=== PATIENT | female | born 1970 | race Caucasian/White ===

== ENCOUNTER 2019-06-09 12:40 | Inpatient (IN) ==
[2019-06-09 14:09] LABS: Bilirubin,Urine Negative (Negative); Blood,Urine Trace (Negative); Clarity,Urine Cloudy (Clear); Color,Urine Yellow (Yellow); Glucose,Urine (UA) Normal (Normal); Ketones,Urine Negative (Negative); Leukocyte Esterase,Urine Moderate (Negative); Nitrite,Urine Negative (Negative); PH,Urine 5.5 pH Units (5.0-8.0); Protein,Urine Trace mg/dL (Neg-Trace); Specific Gravity,Urine 1.023 (1.010-1.025); Urobilinogen,Urine Normal (Normal)
[2019-06-09 14:15] LABS: Basophils % 0.4 %; Eosinophils # 0.2 K/mcL (0.0-0.6); Eosinophils % 2.7 %; Hematocrit 42.4 % (35.3-44.9); Hemoglobin 15.1 g/dL (11.5-15.4); Immature Granulocytes % 0.1 % (0-4); Lymphocytes # 3.4 K/mcL (0.6-4.6); Mean Corpuscular HGB Conc 35.6 g/dL (31.6-35.5); Mean Corpuscular Hemoglobin 34.2 pg (28.0-33.3); Mean Corpuscular Volume 96.1 fL (83.0-100.0); Mean Platelet Volume 10.5 fL (9.4-12.4); Monocytes # 0.8 K/mcL (0.0-1.3); Monocytes % 11.7 %; Neutrophils # 2.6 K/mcL (1.6-8.9); Platelet Count 234 K/mcL (140-400); Red Blood Count 4.41 M/mcL (3.82-4.97); Red Cell Distribution Width 11.9 % (11.5-14.5); Segmented Neutrophils % 37.1 %; White Blood Count 7.1 K/mcL (4.3-11.1)
[2019-06-09 14:16] LABS: Amphetamine Screen,Urine Negative ng/mL (Cutoff=1000); Barbiturate Screen,Urine Negative ng/mL (Cutoff=200); Benzodiazepines Screen,Urine Negative ng/mL (Cutoff=200); Cannabinoid Screen,Urine Positive ng/mL (Cutoff = 50); Cocaine Screen,Urine Negative ng/mL (Cutoff= 300); Opiate Screen,Urine Negative ng/mL (Cutoff=300); Phencyclidine Screen,Urine Negative ng/mL (Cutoff=25)
[2019-06-09 14:16] LABS: Bacteria,Urine None Seen per hpf (None-Few); Hyaline Casts,Urine None Seen per lpf (None-Few); Squamous Epithelial Cell,Urine Many per lpf (None-Few)
[2019-06-09 14:27] LABS: Alanine Aminotransferase 10 Units/L (7-52); Albumin 4.5 g/dL (3.5-5.7); Albumin/Globulin Ratio 1.6 (1.1-2.2); Alkaline Phosphatase 77 Units/L (34-104); Aspartate Amino Transferase 15 Units/L (13-39); BUN/Creatinine Ratio 15 (6-26); Bilirubin,Indirect 0.4 mg/dL (0.0-1.0); Bilirubin,Total 0.4 mg/dL (0.3-1.0); Blood Urea Nitrogen 13 mg/dL (6-20); Calcium 9.5 mg/dL (8.6-10.3); Carbon Dioxide 24 mEq/L (23-29); Chloride 108 mEq/L (98-107); Glucose 96 mg/dL (70-105); Osmolality,Calculated 288 (280-300); Sodium 139 mEq/L (136-145); Total Protein 7.4 g/dL (6.4-8.9); eGFR For African Americans > 60 (> 60); eGFR For Non-African Americans > 60 (> 60)
[2019-06-09 14:28] LABS: Acetaminophen < 10 mcg/mL (10-20); Ethanol < 10 mg/dL (Less than 10); Globulin 2.9 g/dL (2.4-3.5); Salicylate < 2.5 mg/dL (15.0-30.0)
[2019-06-09] MEDS ORDERED: Haloperidol Lactate 5 MG/ML VIAL IM PRN (16:28)
[2019-06-09] MEDS ORDERED: MOM Conc 10 ML UD.LIQ PO PRN (16:28)
[2019-06-09] MEDS ORDERED: *HR* LORazepam 1 MG TABLET PO PRN (16:28)
[2019-06-09] MEDS ORDERED: *HR* LORazepam 2 MG/ML VIAL IM PRN (16:28)
[2019-06-09] MEDS ORDERED: traZODone 50 MG TABLET PO PRN (16:28)
[2019-06-09] MEDS ORDERED: Mag Hydrox/Al Hydrox/Simeth 30 ML UDC PO PRN (16:28)
[2019-06-09] MEDS ORDERED: hydrOXYzine pamoate 25 MG CAPSULE PO PRN (16:28)
[2019-06-09] MEDS ORDERED: Acetaminophen 325 MG TABLET PO PRN (16:28)
[2019-06-09] MEDS ORDERED: Ibuprofen 600 MG TABLET PO PRN (17:39)
[2019-06-09] MEDS ORDERED: Ondansetron ODT 4 MG TAB.RAPDIS SL PRN (17:39)
[2019-06-09] MEDS: cephALEXin 500 MG CAPSULE PO SCH ×2 (17:50→22:22)
[2019-06-09] MEDS ORDERED: clonazePAM 1 MG TABLET PO SCH (21:00)
[2019-06-09] MEDS: FluocinoNIDE 0.05% CRM 15 GM TUBE TP SCH (21:42)
[2019-06-10] MEDS: Loratadine 10 MG TABLET PO SCH (09:22)
[2019-06-10] MEDS: Venlafaxine XR (24 HR) 75 MG CAP.ER.24H PO SCH (09:22)
[2019-06-10] MEDS: cephALEXin 500 MG CAPSULE PO SCH ×3 (09:22→21:50)
[2019-06-10] MEDS: Cyanocobalamin (B-12) 1,000 MCG TABLET PO SCH (09:23)
[2019-06-10] MEDS: FluocinoNIDE 0.05% CRM 15 GM TUBE TP SCH ×2 (09:26→21:48)
[2019-06-10] MEDS ORDERED: clonazePAM 0.5 MG TABLET PO SCH (21:00)
[2019-06-10] MEDS: OXcarbazepine 150 MG TABLET PO SCH (21:50)
[2019-06-11] MEDS: cephALEXin 500 MG CAPSULE PO SCH (08:32)
[2019-06-11] MEDS: FluocinoNIDE 0.05% CRM 15 GM TUBE TP SCH (08:33)
[2019-06-11] MEDS: Loratadine 10 MG TABLET PO SCH (08:33)
[2019-06-11] MEDS: Venlafaxine XR (24 HR) 75 MG CAP.ER.24H PO SCH (08:33)
[2019-06-11] MEDS: Cyanocobalamin (B-12) 1,000 MCG TABLET PO SCH (08:33)
[2019-06-11] MEDS: OXcarbazepine 150 MG TABLET PO SCH (08:33)
[2019-06-11 10:05] VITALS: BP 109/65
[2019-06-11] MEDS ORDERED: FLU Vac QV 19-20 (6Month+)/PF 0.5 ML SYRINGE IM ONE (12:13)
== END 2019-06-11 13:35 | disposition home or self-care (01) | DRG 753 ==
LOC: EMEROOARM 12:40 → 1ANU 15:59 → SUATTDRO 15:59 → 1ANU 16:18
PROVIDERS: ADMIT Psychiatry & Neurology Psychiatry; ATTEND Psychiatry & Neurology Psychiatry

== ENCOUNTER 2020-06-26 14:54 | Inpatient (IN) ==
[2020-06-26] MEDS ORDERED: *HR* LORazepam 1 MG TABLET PO ONE (15:03)
[2020-06-26 15:30] LABS: Bacteria,Urine Few per hpf (None-Few); Bilirubin,Urine Negative (Negative); Blood,Urine Trace-lysed (Negative); Clarity,Urine Clear (Clear); Color,Urine Yellow (Yellow); Glucose,Urine (UA) Normal (Normal); Hyaline Casts,Urine Few per lpf (None Seen); Ketones,Urine Negative (Negative); Leukocyte Esterase,Urine Negative (Negative); Mucus,Urine Moderate per lpf (None-Few); Nitrite,Urine Negative (Negative); Protein,Urine Trace mg/dL (Neg-Trace); Squamous Epithelial Cell,Urine Moderate per hpf (None-Few); Urobilinogen,Urine Normal (Normal); WBC,Urine 0-3 per hpf (0-3)
[2020-06-26 15:40] LABS: Amphetamine Screen,Urine Negative ng/mL (Cutoff=1000); Barbiturate Screen,Urine Negative ng/mL (Cutoff=200); Benzodiazepines Screen,Urine Negative ng/mL (Cutoff=200); Cannabinoid Screen,Urine Negative ng/mL (Cutoff = 50); Cocaine Screen,Urine Negative ng/mL (Cutoff= 300); Opiate Screen,Urine Negative ng/mL (Cutoff=300); Phencyclidine Screen,Urine Negative ng/mL (Cutoff=25)
[2020-06-26 15:42] LABS: Basophils # 0.1 K/mcL (0.0-0.2); Basophils % 0.6 %; Eosinophils # 0.1 K/mcL (0.0-0.6); Eosinophils % 0.9 %; Hematocrit 38.2 % (35.3-44.9); Hemoglobin 12.8 g/dL (11.5-15.4); Immature Granulocytes % 0.4 % (0-4); Lymphocytes # 2.5 K/mcL (0.6-4.6); Lymphocytes % 30.8 %; Mean Corpuscular HGB Conc 33.5 g/dL (31.6-35.5); Mean Corpuscular Hemoglobin 33.9 pg (28.0-33.3); Mean Corpuscular Volume 101.1 fL (83.0-100.0); Mean Platelet Volume 10.2 fL (9.4-12.4); Monocytes # 0.8 K/mcL (0.0-1.3); Monocytes % 9.3 %; Neutrophils # 4.7 K/mcL (1.6-8.9); Platelet Count 240 K/mcL (140-400); Red Blood Count 3.78 M/mcL (3.82-4.97); White Blood Count 8.2 K/mcL (4.3-11.1)
[2020-06-26 15:47] LABS: Estimated Average Glucose 111 mg/dl
[2020-06-26 15:56] LABS: Acetaminophen < 10 mcg/mL (10-20); BUN/Creatinine Ratio 13 (6-26); Blood Urea Nitrogen 12 mg/dL (6-20); Calcium 9.3 mg/dL (8.6-10.3); Carbon Dioxide 25 mEq/L (23-29); Chloride 109 mEq/L (98-107); Chol/HDL Ratio 4.1 (0-4.9); Cholesterol 173 mg/dL (< 200); Ethanol < 10 mg/dL (Less than 10); Glucose 91 mg/dL (70-105); HDL Cholesterol 42 mg/dL (40-59); LDL Cholesterol,Calculated 117 mg/dL (< 100); Osmolality,Calculated 295 (280-300); Potassium 3.8 mEq/L (3.5-5.1); Salicylate < 2.5 mg/dL (15.0-30.0); Sodium 143 mEq/L (136-145); Triglycerides 72 mg/dL (< 150); eGFR For African Americans > 60 (> 60); eGFR For Non-African Americans > 60 (> 60)
[2020-06-26] MEDS ORDERED: Mag Hydrox/Al Hydrox/Simeth 30 ML UDC PO PRN (17:30)
[2020-06-26] MEDS ORDERED: *HR* LORazepam 1 MG TABLET PO PRN (17:30)
[2020-06-26] MEDS ORDERED: *HR* LORazepam 2 MG/ML VIAL IM PRN (17:30)
[2020-06-26] MEDS ORDERED: MOM Conc 10 ML UD.LIQ PO PRN (17:30)
[2020-06-26] MEDS ORDERED: Haloperidol Lactate 5 MG/ML VIAL IM PRN (17:30)
[2020-06-26] MEDS ORDERED: haloperidoL 5 MG TABLET PO PRN (17:30)
[2020-06-26] MEDS: Ibuprofen 400 MG TABLET PO PRN (22:27)
[2020-06-27] MEDS: hydrOXYzine pamoate 25 MG CAPSULE PO PRN (00:24)
[2020-06-27] MEDS: traZODone 50 MG TABLET PO PRN (00:24)
[2020-06-27] MEDS ORDERED: clonazePAM 0.5 MG TABLET PO PRN (15:48)
[2020-06-27] MEDS: OXcarbazepine 150 MG TABLET PO SCH (21:54)
[2020-06-28] MEDS: Ibuprofen 400 MG TABLET PO PRN ×2 (07:34→19:47)
[2020-06-28] MEDS ORDERED: Cholecalciferol (D-3) 1,000 UNIT (25MCG) TABLET PO SCH (09:00)
[2020-06-28] MEDS: Venlafaxine XR (24 HR) 150 MG CAP.ER.24H PO SCH (09:05)
[2020-06-28] MEDS: OXcarbazepine 150 MG TABLET PO SCH ×2 (09:05→21:08)
[2020-06-28] MEDS: Cholecalciferol (D-3) 1,000 UNIT (25MCG) TABLET PO SCH (09:37)
[2020-06-28] MEDS: traZODone 50 MG TABLET PO PRN (21:08)
[2020-06-28] MEDS: hydrOXYzine pamoate 25 MG CAPSULE PO PRN (21:08)
[2020-06-29] MEDS: Venlafaxine XR (24 HR) 150 MG CAP.ER.24H PO SCH (08:36)
[2020-06-29] MEDS: OXcarbazepine 150 MG TABLET PO SCH ×2 (08:37→21:26)
[2020-06-29] MEDS: Cholecalciferol (D-3) 1,000 UNIT (25MCG) TABLET PO SCH (08:38)
[2020-06-29] MEDS: Ibuprofen 400 MG TABLET PO PRN (16:36)
[2020-06-29] MEDS: traZODone 50 MG TABLET PO PRN (21:26)
[2020-06-29] MEDS: hydrOXYzine pamoate 25 MG CAPSULE PO PRN (21:26)
[2020-06-30] MEDS: Cyanocobalamin (B-12) 1,000 MCG TABLET PO SCH (08:29)
[2020-06-30] MEDS: OXcarbazepine 150 MG TABLET PO SCH ×2 (08:30→21:31)
[2020-06-30] MEDS: Cholecalciferol (D-3) 1,000 UNIT (25MCG) TABLET PO SCH (08:31)
[2020-06-30] MEDS: Venlafaxine XR (24 HR) 150 MG CAP.ER.24H PO SCH (08:31)
[2020-06-30] MEDS: Ibuprofen 400 MG TABLET PO PRN (18:17)
[2020-06-30] MEDS: hydrOXYzine pamoate 25 MG CAPSULE PO PRN (21:31)
[2020-06-30] MEDS: traZODone 50 MG TABLET PO PRN (21:31)
[2020-07-01] MEDS: OXcarbazepine 150 MG TABLET PO SCH (08:38)
[2020-07-01] MEDS: Venlafaxine XR (24 HR) 150 MG CAP.ER.24H PO SCH (08:40)
[2020-07-01] MEDS: Cyanocobalamin (B-12) 1,000 MCG TABLET PO SCH (08:41)
[2020-07-01] MEDS: Cholecalciferol (D-3) 1,000 UNIT (25MCG) TABLET PO SCH (08:41)
[2020-07-01 11:21] VITALS: BP 108/56
== END 2020-07-01 17:00 | disposition home or self-care (01) | DRG 753 ==
LOC: EMEROOARM 14:54 → 1ANU 17:26 → INTOOBSV 17:26 → 1ANU 18:40
PROVIDERS: ADMIT Psychiatry & Neurology Psychiatry; ATTEND Psychiatry & Neurology Psychiatry

== ENCOUNTER 2021-12-19 13:03 | Observation (INO) ==
[2021-12-19 13:50] LABS: Basophils % 0.7 %; Eosinophils # 0.1 K/mcL (0.0-0.6); Eosinophils % 1.2 %; Hematocrit 37.6 % (35.3-44.9); Hemoglobin 12.8 g/dL (11.5-15.4); Lymphocytes # 2.9 K/mcL (0.6-4.6); Lymphocytes % 49.7 %; Mean Corpuscular Hemoglobin 33.4 pg (28.0-33.3); Mean Corpuscular Volume 98.2 fL (83.0-100.0); Mean Platelet Volume 10.4 fL (9.4-12.4); Monocytes # 0.7 K/mcL (0.0-1.3); Monocytes % 11.2 %; Neutrophils # 2.2 K/mcL (1.6-8.9); Platelet Count 228 K/mcL (140-400); Red Blood Count 3.83 M/mcL (3.82-4.97); Red Cell Distribution Width 12.3 % (11.5-14.5); Segmented Neutrophils % 37.2 %; White Blood Count 5.8 K/mcL (4.3-11.1)
[2021-12-19 14:04] LABS: Bilirubin,Urine Negative (Negative); Blood,Urine Negative (Negative); Clarity,Urine Clear (Clear); Color,Urine Light-Yellow (Yellow); Glucose,Urine (UA) Normal (Normal); Ketones,Urine Negative (Negative); Leukocyte Esterase,Urine Negative (Negative); Nitrite,Urine Negative (Negative); Protein,Urine Trace mg/dL (Neg-Trace); Specific Gravity,Urine 1.024 (1.010-1.025); Urobilinogen,Urine Normal (Normal)
[2021-12-19 14:15] LABS: Acetaminophen < 10 mcg/mL (10-20); BUN/Creatinine Ratio 14 (6-26); Blood Urea Nitrogen 12 mg/dL (6-20); Calcium 9.5 mg/dL (8.6-10.3); Carbon Dioxide 27 mEq/L (23-29); Chloride 109 mEq/L (98-107); Chol/HDL Ratio 3.5 (0-4.9); Cholesterol 148 mg/dL (< 200); Ethanol < 10 mg/dL (Less than 10); Glucose 116 mg/dL (70-105); HDL Cholesterol 42 mg/dL (40-59); LDL Cholesterol,Calculated 93 mg/dL (< 100); Osmolality,Calculated 301 (280-300); Potassium 3.9 mEq/L (3.5-5.1); Salicylate < 2.5 mg/dL (15.0-30.0); Sodium 145 mEq/L (136-145); Triglycerides 65 mg/dL (< 150); eGFR For African Americans > 60 (> 60); eGFR For Non-African Americans > 60 (> 60)
[2021-12-19 14:17] LABS: Amphetamine Screen,Urine Negative ng/mL (Cutoff=1000); Barbiturate Screen,Urine Negative ng/mL (Cutoff=200); Benzodiazepines Screen,Urine Negative ng/mL (Cutoff=200); Cannabinoid Screen,Urine Negative ng/mL (Cutoff = 50); Cocaine Screen,Urine Negative ng/mL (Cutoff= 300); Opiate Screen,Urine Negative ng/mL (Cutoff=300); Phencyclidine Screen,Urine Negative ng/mL (Cutoff=25)
[2021-12-19] MEDS: 0.9 % Sodium Chloride 1,000 ML IVC SCH ×3 (14:46→17:30)
[2021-12-19 15:15] LABS: Estimated Average Glucose 105 mg/dl; Hemoglobin A1C 5.3 %
[2021-12-19] MEDS ORDERED: Naloxone 0.4 MG/ML INJ IVP PRN (16:05)
[2021-12-19] MEDS ORDERED: *HR* LORazepam 2 MG/ML VIAL IVP PRN (17:21)
[2021-12-19] MEDS: *HR* Heparin 5,000 UNIT/ML VIAL SQ SCH (17:30)
[2021-12-20] MEDS: 0.9 % Sodium Chloride 1,000 ML IVC SCH ×2 (04:40→14:39)
[2021-12-20] MEDS: *HR* Heparin 5,000 UNIT/ML VIAL SQ SCH (05:24)
[2021-12-20 07:23] VITALS: BP 95/60; PULSE 65; TEMP 97.6; O2SAT 96
[2021-12-20 07:44] LABS: BUN/Creatinine Ratio 13 (6-26); Blood Urea Nitrogen 10 mg/dL (6-20); Calcium 8.2 mg/dL (8.6-10.3); Carbon Dioxide 23 mEq/L (23-29); Chloride 114 mEq/L (98-107); Glucose 92 mg/dL (70-105); Osmolality,Calculated 295 (280-300); Potassium 3.7 mEq/L (3.5-5.1); Sodium 143 mEq/L (136-145); eGFR For African Americans > 60 (> 60); eGFR For Non-African Americans > 60 (> 60)
[2021-12-20] MEDS ORDERED: Mirtazapine 15 MG TABLET PO SCH (21:00)
== END 2021-12-20 18:02 | disposition home or self-care (01) ==
LOC: EMEROOARM 13:03 → 3BNU 13:03
PROVIDERS: ADMIT Internal Medicine; ATTEND Internal Medicine